=== PATIENT | female | born 1950 | race African-American/Black ===

== ENCOUNTER 2019-05-05 18:36 | Emergency (ER) | payer OTHER, MEDICARE ==
[2019-05-05 18:41] VITALS: BP 147/67; PULSE 104; TEMP 97.9; BMI 34.2
--- NOTE | 2019-05-05 19:19 | PDOC ---
History of Present Illness - General Chief Complaint: Pain Stated Complaint: PAIN Time Seen by Provider: 05/05/19 19:18 - History of Present Illness Initial Comments: HPI: 68yo F with PMH of degenerative disc disease, HTN presenting with lower back pain. Patient has had chronic back pain for over five years which will intermittently exacerbate. She had a shoulder injury about two years ago and received physical therapy and cortisone injections. When her back pain exacerbates like this, she takes "hydrocodone with tylenol" (I believe she means tylenol with codeine) that her doctor gives her. She has taken jef and motrin at home for her back pain with minimal relief. Denies any inciting fall or trauma that made this pain worse. Her usual back pain triggers include cold and rainy weather and it has been rainy recently. Patient also is concerned because she passed a "stone" in her stool on Monday. Also has a headache that is not different from her usual headaches. Denies saddle anesthesia, significant weight loss, history of cancer or IVDU, or urinary/fecal incontinence. No fever or chills. ROS: Constitutional: no fever, no chills HEENT: no throat pain, no dysphagia Cardiovascular: no chest pain, no palpitations Respiratory: no cough, no shortness of breath Gastrointestinal: no abdominal pain, no nausea Genitourinary: no dysuria, no hematuria Musculoskeletal: no myalgia, +back pain Skin: no rash, no itching Neurologic: +headache, no weakness Psych: no agitation, no anxiety PE: General: Awake, alert, and fully oriented, in no acute distress Head: No signs of trauma Eyes: EOMI, sclera anicteric ENT: Moist mucus membranes Neck: Normal ROM, supple Lungs: Lungs clear, Normal breath sounds Cardio: Regular rhythm, S1 and S2 present Abdomen: Soft, nontender Extremities: Normal range of motion, Distal pulses present SKIN: Warm, Dry, normal turgor Neurologic: Cranial nerves II through XII grossly intact. Normal speech Back: Tender to palpation in lumbar area, midline and bilateral paraspinal area , no step-offs/deformities/fluctuance; no overlying wound or lesion; 2+ patellar reflexes, 5/5 strength in all extremities with normal sensation; ambulating with steady gait DDX including but not limited to: lumbago, spinal cord or cauda equina compression, metastatic cancer, spinal epidural abscess, vertebral osteomyelitis , vertebral compression fracture, radiculopathy, spinal stenosis, osteoarthritis , nephrolithiasis, herpes zoster Patient also is concerned because she passed a "stone" in her stool on Monday which appears to be a pill. I explained to the patient that this is likely not of organic origin and if probably something she inadvertently swallowed. No red flag back pain symptoms; pain is likely lumbago Lidocaine patch Flexeril Toradol Percocet 05/05/19 19:18 Patient to follow up with her PCP and orthopedist Thalia lidocaine patch sent to pharmacy Return precautions Stable for discharge 05/05/19 20:03 Past History - Past Medical History Allergies/Adverse Reactions: Allergies Allergy/AdvReac Type Severity Reaction Status Date / Time No Known Drug Allergies Allergy Verified 05/05/19 18:41 Home Medications: Ambulatory Orders Escitalopram Oxalate [Lexapro] 5 mg PO DAILY #0 tablet 05/05/12 Nifedipine ER [Procardia XL -] 30 mg PO DAILY #0 tab.[id number] 05/05/12 Alprazolam [Xanax] 0.25 mg PO BID PRN 05/27/13 Calcitriol 2 cap PO DAILY 05/27/13 Calcium Carbonate - 2,400 mg PO DAILY 05/27/13 Latanoprost 0.005% Eye Drops [Xalatan 0.005% Eye Drops -] 1 drop OP HS 05/27/13 Levothyroxine [Synthroid -] 112 mcg PO DAILY 05/27/13 Psyllium [Metamucil (Sugar-Free) -] 5.85 gm PO DAILY PRN 05/27/13 Oxycodone HCl/Acetaminophen [Percocet 5-325 mg Tablet] 1 - 2 combo PO Q6H PRN # 10 tab 07/31/13 Metoprolol Tartrate [Lopressor -] 25 mg PO DAILY 08/01/13 Pantoprazole Suspension [Protonix Packets For Oral Suspension -] 40 mg PO DAILY 08/01/13 Latanoprost 0.005% Eye Drops [Xalatan 0.005% Eye Drops -] 1 drop OU HS #0 drops 08/06/13 Cyclobenzaprine HCl [Flexeril -] 10 mg PO TID PRN #21 tablet 05/05/19 Lidocaine 5% Patch [Lidoderm -] 1 patch TP DAILY #7 patch 05/05/19 Anemia: No Asthma: No Cancer: No Cardiac Disorders: Yes (MVP) CVA: No COPD: Yes (chronic bronchitis) CHF: No Dementia: No Diabetes: Yes GI Disorders: Yes (GERD, DIVERTICULOSIS) Disorders: No HTN: Yes Hypercholesterolemia: No Liver Disease: No Psychiatric Problems: Yes (DEPRESSION & ANXIETY) Seizures: Yes (THYROIDECTOMY) Thyroid Disease: No - Surgical History Abdominal Surgery: No Appendectomy: No Cardiac Surgery: No Cholecystectomy: Yes Lung Surgery: No Neurologic Surgery: No Orthopedic Surgery: No - Immunization History Immunization Up to Date: Yes - Psycho Social/Smoking Cessation Hx Smoking History: Never smoked Have you smoked in the past 12 months: Yes Number of Cigarettes Smoked Daily: 6 'Breaking Loose' booklet given: 05/18/15 Hx Alcohol Use: No Drug/Substance Use Hx: No Substance Use Type: None Hx Substance Use Treatment: No *Physical Exam - Vital Signs Last Vital Signs Temp Pulse Resp BP Pulse Ox 97.9 F 104 H 18 147/67 98 05/05/19 18:39 05/05/19 18:39 05/05/19 18:39 05/05/19 18:39 05/05/19 18:39 Discharge - Discharge Information Problems reviewed: Yes Clinical Impression/Diagnosis: Lower back pain Qualifiers: Chronicity: acute Back pain laterality: unspecified Sciatica presence: unspecified whether sciatica present Qualified Code(s): M54.5 - Low back pain Condition: Stable Disposition: HOME - Additional Discharge Information Prescriptions: Cyclobenzaprine HCl [Flexeril -] 10 mg PO TID PRN #21 tablet PRN Reason: Back Pain Lidocaine 5% Patch [Lidoderm -] 1 patch TP DAILY #7 patch - Follow up/Referral Referrals: Cortes Freeman MD [Primary Care Provider] - Jaime Mccormick MD [Staff Physician] - - Patient Discharge Instructions Patient Printed Discharge Instructions: DI for Low Back Pain Additional Instructions: You came to the emergency department for back pain. Prescriptions sent to your pharmacy. Take as instructed. You can also take [id number] tylenol or motrin for pain. Follow the instructions on the medication bottle. Follow-up with your orthopedist and primary care physician within 72 hours to discuss this ED visit and to further evaluate your back pain. Your care is not complete until you do so. Call and make an appointment. Immediate medical attention is required if you have back pain and : numbness in the genital or rectal area, loss of bowel or bladder control, difficulty with urination; fever, unexplained weight loss, or other signs of illness or infection. If you think you are having an emergency, call for emergency medical - Post Discharge Activity
--- NOTE | 2019-05-05 19:41 | PDOC ---
Attending Attestation - Resident Resident Name: Vickie Ramírez - ED Attending Attestation I have performed the following: I have examined & evaluated the patient, The case was reviewed & discussed with the resident, I agree w/resident's findings & plan - HPI HPI: 05/05/19 20:04 Pt was a nurse for 42 years. Never injured her back; however, she has RA that runs in family. She states that she has chronic back pains and DJD and that she uses flexeril and tyl#3 when it gets bad. - Physicial Exam PE: 05/05/19 20:06 Pt has paraspinal tenderness. reflexes and strength intact. heart and lungs normal no rashes afebrile VSS pt's HR is due to pain. - Medical Decision Making 05/05/19 20:07 lidoderm and flexeril will be prescribed for the patient follow with PMD
[2019-05-05] MEDS ORDERED: CYCLOBENZAPRINE HCL 10 MG TABLET (FP) PO ONE (19:46)
[2019-05-05] MEDS ORDERED: LIDOCAINE 5% TOPICAL PATCH TP ONE (19:46)
[2019-05-05] MEDS ORDERED: KETOROLAC TROMETHAMINE 60 MG/2 ML VIAL IM ONE (19:47)
[2019-05-05] MEDS ORDERED: CYCLOBENZAPRINE HCL 10 MG TABLET (FP) ONE (19:53)
[2019-05-05] MEDS ORDERED: LIDOCAINE 5% TOPICAL PATCH ONE (19:53)
[2019-05-05] MEDS ORDERED: KETOROLAC TROMETHAMINE 60 MG/2 ML VIAL ONE (19:59)
[2019-05-05] MEDS ORDERED: LIDOCAINE PATCH REMOVAL MC SCH (22:00)
== END 2019-05-05 20:18 | disposition home or self-care (01) ==
LOC: JER 18:36
PROC: 3E0233Z Introduction of Anti-inflammatory into Muscle, Percutaneous Approach (ICD-10-PCS; principal; 2019-05-05)
DX: M54.5 Low back pain (principal); M51.37 Other intervertebral disc degeneration, lumbosacral region; I10 Essential (primary) hypertension; I34.1 Nonrheumatic mitral (valve) prolapse; K21.9 Gastro-esophageal reflux disease without esophagitis; J42 Unspecified chronic bronchitis; F41.9 Anxiety disorder, unspecified; F32.9 Major depressive disorder, single episode, unspecified; E89.0 Postprocedural hypothyroidism; Z90.49 Acquired absence of other specified parts of digestive tract
CPT/HCPCS: 96372; 99284-25

== ENCOUNTER 2023-10-30 16:11 | Emergency (ER) | payer OTHER, MEDICARE ==
[2023-10-30 16:32] VITALS: BP 116/67; PULSE 91; RESP 16; TEMP 98.5; BMI 34.0
[2023-10-30] MEDS ORDERED: ACETAMINOPHEN INJECTION 100 ML IVPB ONE (17:08)
[2023-10-30] MEDS: ACETAMINOPHEN 1000 MG/100 ML BAG IVPB ONE (17:16)
[2023-10-30] MEDS: SODIUM CHLORIDE 0.9% 500 ML INFUS.BAG IV ONE (17:16)
[2023-10-30 17:21] LABS: BASO % 1.6 % (0-2.0); HEMATOCRIT 38.4 % (32.4-45.2); HEMOGLOBIN 12.8 GM/dL (10.7-15.3); LYMPH % 19.7 % (8-40); MCH 34.2 pg (25.7-33.7); MCHC 33.3 g/dl (32.0-36.0); MEAN CELL VOLUME 102.9 fl (80-96); MEAN PLT VOLUME 7.8 fl (7.5-11.1); MONO % 11.2 % (3.8-10.2); NEUT % 66.5 % (42.8-82.8); PLATELET COUNT 304 10^3/uL (134-434); RBC 3.73 M/mm3 (3.60-5.2); RDW 12.7 % (11.6-15.6); WHITE BLOOD COUNT 6.2 K/mm3 (4.0-10.0)
[2023-10-30 17:33] LABS: CHLORIDE 101 mmol/L (98-107); SODIUM 134 mmol/L (136-145)
[2023-10-30 17:35] LABS: CALCIUM 9.1 mg/dL (8.5-10.1)
[2023-10-30 17:36] LABS: BLOOD UREA NITROGEN 22.4 mg/dL (7-18); CO2 23 mmol/L (21-32); GLUCOSE,RANDOM 189 mg/dL (74-106)
[2023-10-30 17:38] LABS: ADD RBC MORPHOLOGY YES
[2023-10-30 17:39] LABS: CREATININE 1.4 mg/dL (0.55-1.3); SGOT/AST 126 U/L (15-37)
[2023-10-30 17:40] LABS: BILIRUBIN,TOTAL 1.2 mg/dL (0.2-1); TOT PROT 7.9 g/dl (6.4-8.2)
[2023-10-30 17:42] LABS: ALK PHOS 38 U/L (45-117)
[2023-10-30 17:44] LABS: N-TERMINAL BNP 347.3 pg/ml (5-125)
[2023-10-30 17:49] LABS: ANION GAP 10 mmol/L (4-13); POTASSIUM 8.3 mmol/L (3.5-5.1); SGPT/ALT 30 U/L (13-61)
[2023-10-30 18:36] LABS: POTASSIUM 4.2 mmol/L (3.5-5.1)
[2023-10-30 18:38] LABS: CALCIUM 9.3 mg/dL (8.5-10.1)
[2023-10-30 18:39] LABS: ALBUMIN 4.1 g/dl (3.4-5.0); BLOOD UREA NITROGEN 21.2 mg/dL (7-18)
[2023-10-30 18:42] LABS: CREATININE 1.2 mg/dL (0.55-1.3)
[2023-10-30 18:43] LABS: BILIRUBIN,TOTAL 1.2 mg/dL (0.2-1); TOT PROT 7.2 g/dl (6.4-8.2)
== END 2023-10-30 20:27 | disposition left against medical advice (07) ==
LOC: JER 16:11
PROC: 3E033NZ Introduction of Analgesics, Hypnotics, Sedatives into Peripheral Vein, Percutaneous Approach (ICD-10-PCS; principal; 2023-10-30)
DX: R55 Syncope and collapse (principal)
CPT/HCPCS: 36415; 70450-TC; 71045-TC-FY; 72125-TC; 80053; 83880; 84484; 85025; 93005; 93010; 99285-25; J0131